=== PATIENT | female | born 1995 | race Caucasian/White ===

== ENCOUNTER 2017-11-17 15:19 | Emergency (ER) | payer OTHER ==
[~2017-11-17] VITALS: Ht 170.2 cm; Wt 112.9 kg
--- NOTE | 2017-11-17 16:32 | PHYS DOC ---
Past History Past Medical History: Anxiety, Bipolar, Depression Past Surgical History: No Surgical History Alcohol Use: Occasionally Drug Use: None Adult General Chief Complaint Chief Complaint: SEXUALLY TRANSMITTED DISEASE HPI HPI 22-year-old female presents with her spouse was concern for STD. The patient has noticed that she has had a change in her discharge for the last couple of days. She also reported a burning sensation in her vagina. The patient has had chlamydia in the past. She admits to 4 sexual partners the last 1 year. She denies fever or chills. She has been once, but miscarried. Review of Systems Review of Systems Constitutional: Denies fever or chills [] Eyes: Denies change in visual acuity, redness, or eye pain [] HENT: Denies nasal congestion or sore throat [] Respiratory: Denies cough or shortness of breath [] Cardiovascular: No additional information not addressed in HPI [] GI: Denies abdominal pain, nausea, vomiting, bloody stools or diarrhea [] : Change in vaginal discharge[] Musculoskeletal: Denies back pain or joint pain [] Integument: Denies rash or skin lesions [] Neurologic: Denies headache, focal weakness or sensory changes [] Endocrine: Denies polyuria or polydipsia [] All other systems were reviewed and found to be within normal limits, except as documented in this note. Allergies Allergies Allergies Coded Allergies Type Severity Reaction Last Updated Verified lisdexamfetamine Allergy Mild 11/17/17 Yes Physical Exam Physical Exam Constitutional: Well developed, well nourished, no acute distress, non-toxic appearance. [] HENT: Normocephalic, atraumatic, bilateral external ears normal, oropharynx moist, no oral exudates, nose normal. [] Eyes: PERRLA, EOMI, conjunctiva normal, no discharge. [] Neck: Normal range of motion, no tenderness, supple, no stridor. [] Cardiovascular:Heart rate regular rhythm, no murmur [] Lungs & Thorax: Bilateral breath sounds clear to auscultation [] Abdomen: Bowel sounds normal, soft, no tenderness, no masses, no pulsatile masses. [] Skin: Warm, dry, no erythema, no rash. [] Back: No tenderness, no CVA tenderness. [] Extremities: No tenderness, no cyanosis, no clubbing, ROM intact, no edema. [] Neurologic: Alert and oriented X 3, normal motor function, normal sensory function, no focal deficits noted. [] Psychologic: Affect normal, judgement normal, mood normal. : shaved pubic hair, normal external exam, thick white to vieyra discharge, erythematous cervix. [] Current Patient Data Vital Signs Vital Signs Date Time Temp Pulse Resp B/P (MAP) Pulse Ox O2 Delivery O2 Flow Rate FiO2 11/17/17 15:49 98.3 112 18 98 Room Air EKG EKG [] Radiology/Procedures Radiology/Procedures [] Course & Med Decision Making Course & Med Decision Making Pertinent Labs and Imaging studies reviewed. (See chart for details) Patient is been treated for chlamydia and gonorrhea with ceftriaxone and azithromycin. Her wet prep was negative. She is stable for discharge at this time. [] Dragon Disclaimer Dragon Disclaimer This electronic medical record was generated, in whole or in part, using a voice recognition dictation system. Departure Departure: Referrals: YULISA HOWARD DO, [facility] (PCP) BRENTON LUNA DO Nov 17, 2017 16:32
[2017-11-17 16:42] VITALS: BP 135/85
[2017-11-17] MEDS ORDERED: cefTRIAXone IM 250 MG VIAL IM ONE (17:00)
[2017-11-17] MEDS ORDERED: AZITHROMYCIN 250 MG TABLET. PO ONE (17:00)
[2017-11-18 15:09] LABS: CHLAMYDIA PROBE Negative (Negative)
== END 2017-11-17 17:20 | disposition home or self-care (01) ==
LOC: ER 15:19
DX: A54.03 Gonococcal cervicitis, unspecified (principal); A56.09 Other chlamydial infection of lower genitourinary tract; Z88.8 Allergy status to other drugs, medicaments and biological substances
CPT/HCPCS: 36415; 87491; 87591; 96372; 99284; J0456; J0696; Q0111

== ENCOUNTER 2018-02-12 15:45 | Emergency (ER) | payer OTHER ==
[~2018-02-12] VITALS: Ht 170.2 cm; Wt 112.9 kg
[2018-02-12] MEDS ORDERED: MORPHINE SULFATE 10 MG/ML SYRINGE. IM ONE (16:15)
[2018-02-12] MEDS ORDERED: ONDANSETRON ODT 4 MG TAB.RAPDIS PO ONE (16:15)
[2018-02-12] MEDS ORDERED: DOXY100T9 PO (16:47)
[2018-02-12] MEDS ORDERED: HYDR-3165 PO ×2 (16:47→16:49)
--- NOTE | 2018-02-12 16:55 | ED.ADGEN ---
Past History Past Medical History: Anxiety, Bipolar, Depression Past Surgical History: No Surgical History Alcohol Use: Occasionally Drug Use: None Adult General Chief Complaint Chief Complaint Genital lesion HPI HPI Patient is a 22-year-old female presents with dental lesion to right anterior inner labia. Symptom onset was 3 days ago. Patient reports tenderness swelling to this region. history of ingrown hairs and chlamydia which was untreated. Patient is currently in a female female relationship. Last menstrual period in the past 3 weeks. Denies possibility of [] Review of Systems Review of Systems Review symptoms as per history of present illness. All other systems were reviewed and found to be within normal limits, except as documented in this note. Current Medications Current Medications Current Medications Medications (Trade) Dose Ordered Sig/Ej Start Time Stop Time Status Last Admin Dose Admin Morphine Sulfate (Morphine 10mg Syringe) 10 mg 1X ONCE 02/12/18 16:15 02/12/18 16:16 DC 02/12/18 16:22 10 MG Ondansetron HCl (Zofran Odt) 4 mg 1X ONCE 02/12/18 16:15 02/12/18 16:16 DC 02/12/18 16:22 4 MG Allergies Allergies Allergies Coded Allergies Type Severity Reaction Last Updated Verified lisdexamfetamine Allergy Mild 11/17/17 Yes Physical Exam Physical Exam Constitutional: Well developed, well nourished, no acute distress, non-toxic appearance. [] HENT: Normocephalic, atraumatic, bilateral external ears normal, oropharynx moist, no oral exudates, nose normal. [] : Minimal swelling, erythema of right anterior inner labia, no fluctuance, drainage or pointing. No mucosal lesions. Minimal tenderness. [] Psychologic: Affect normal, judgement normal, mood normal. [] EKG EKG [] Radiology/Procedures Radiology/Procedures [] Course & Med Decision Making Course & Med Decision Making Pertinent Labs and Imaging studies reviewed. (See chart for details) [Recommend antibiotics, supportive care for treatment of genital lesion with PCP /R[facility] OPERATOR follow-up. Return precautions reviewed. ] Final Impression Final Impression [1. Genital lesion] Dragon Disclaimer Dragon Disclaimer This electronic medical record was generated, in whole or in part, using a voice recognition dictation system. BRENTON SOTO DO Feb 12, 2018 16:55
== END 2018-02-12 16:54 | disposition home or self-care (01) ==
LOC: ER 15:45
DX: N90.89 Other specified noninflammatory disorders of vulva and perineum (principal); Z88.8 Allergy status to other drugs, medicaments and biological substances
CPT/HCPCS: 96372; 99283; J2270; Q0162

== ENCOUNTER 2018-04-06 13:11 | Emergency (ER) | payer OTHER ==
[~2018-04-06] VITALS: Ht 170.2 cm; Wt 108.7 kg
[~2018-04-06 13:11] MED LIST: DOXY100T9 PO; HYDR-3165 PO
[2018-04-06] MEDS ORDERED: IV NORMAL SALINE 1,000ML 1,000 ML IV SCH (14:45)
--- NOTE | 2018-04-06 14:55 | PHYS DOC ---
Past History Past Medical History: Anxiety, Bipolar, Depression, Other Past Surgical History: No Surgical History Alcohol Use: Occasionally Drug Use: None Adult General Chief Complaint Chief Complaint: CHEST PAIN HPI HPI Patient is a 22-year-old female presents complaining of mid chest pain that started this morning, lasts a short amount of time but comes and goes. Not specifically associated with exertion, coughing, or body position, or movement. There has been some nausea, no vomiting. Patient reports the discomfort is burning in nature. Moderate in intensity. No radiation of the discomfort. No diaphoresis. No history of similar symptoms previously. Patient denies any PE risk factors.[] Review of Systems Review of Systems Constitutional: Denies fever or chills [] Eyes: Denies change in visual acuity, redness, or eye pain [] HENT: Denies nasal congestion or sore throat [] Respiratory: Denies cough or shortness of breath [] Cardiovascular: No additional information not addressed in HPI [] GI: Denies abdominal pain, nausea, vomiting, bloody stools or diarrhea [] : Denies dysuria or hematuria [] Musculoskeletal: Denies back pain or joint pain [] Integument: Denies rash or skin lesions [] Neurologic: Denies headache, focal weakness or sensory changes [] Endocrine: Denies polyuria or polydipsia [] All other systems were reviewed and found to be within normal limits, except as documented in this note. Current Medications Current Medications Current Medications Medications (Trade) Dose Ordered Sig/Ej Start Time Stop Time Status Last Admin Dose Admin Sodium Chloride 1,000 ml @ 100 mls/hr Q10H 04/06/18 14:45 04/07/18 00:44 UNV Allergies Allergies Allergies Coded Allergies Type Severity Reaction Last Updated Verified lisdexamfetamine Allergy Mild 11/17/17 Yes Physical Exam Physical Exam Constitutional: Well developed, well nourished, no acute distress, non-toxic appearance. [] HENT: Normocephalic, atraumatic, bilateral external ears normal, oropharynx moist, no oral exudates, nose normal. [] Eyes: PERRLA, EOMI, conjunctiva normal, no discharge. [] Neck: Normal range of motion, no tenderness, supple, no stridor. [] Cardiovascular:Heart rate regular rhythm, no murmur [] Lungs & Thorax: Bilateral breath sounds clear to auscultation [] Abdomen: Bowel sounds normal, soft, no tenderness, no masses, no pulsatile masses. [] Skin: Warm, dry, no erythema, no rash. [] Back: No tenderness, no CVA tenderness. [] Extremities: No tenderness, no cyanosis, no clubbing, ROM intact, no edema. [] Neurologic: Alert and oriented X 3, normal motor function, normal sensory function, no focal deficits noted. [] Psychologic: Affect normal, judgement normal, mood normal. [] Current Patient Data Vital Signs Vital Signs Date Time Temp Pulse Resp B/P (MAP) Pulse Ox O2 Delivery O2 Flow Rate FiO2 04/06/18 13:28 97.8 119 18 97 Room Air EKG EKG EKG shows a sinus tachycardia at 112 bpm, no ST elevation, normal axis, QTC of 425 ms, no old EKG available for comparison. EKG interpreted by me at 1330[] Radiology/Procedures Radiology/Procedures EXAM: CHEST 1 VIEW History: Chest pain COMPARISON: None available. TECHNIQUE: Single portable radiograph of the chest FINDINGS: The cardiac silhouette is unremarkable. The lungs are clear bilaterally. The costophrenic sulci are clear and well demarcated. IMPRESSION: No radiographic evidence of an acute cardiopulmonary process. Electronically signed by: Jose Daniel Meehan MD (04/06/2018 3:07 PM) [id number] [] Course & Med Decision Making Course & Med Decision Making Pertinent Labs and Imaging studies reviewed. (See chart for details) ED course: Patient arrived, was placed in bed, and tolerated exam well. She was given GI cocktail which entirely resolved her symptoms. Discussed findings and plan with patient who voiced understanding. All questions were answered. Patient was discharged in improved condition. Medical decision making: There is no evidence of pneumonia, pneumothorax, pulmonary embolism, acute coronary syndrome, or other life-threatening condition. There is also menstrual finding of a urinary tract infection.[] Dragon Disclaimer Dragon Disclaimer This electronic medical record was generated, in whole or in part, using a voice recognition dictation system. Departure Departure: Impression: Primary Impression: Chest pain Additional Impressions: GERD (gastroesophageal reflux disease) Urinary tract infection Trichomonas infection Disposition: 01 HOME, SELF-CARE Condition: IMPROVED Referrals: YULISA HOWARD DO, [facility] (PCP) Follow-up in 2 days Patient Instructions: Chest Pain (Nonspecific), Diet for Gastroesophageal Reflux Disease, Adult, Gastroesophageal Reflux Disease, Adult, Trichomoniasis, Urinary Tract Infection Additional Instructions: Drink plenty of fluids. Follow-up with your regular doctor in 2 days. Return to the ER if worsening chest discomfort, fever of more than 101, or any other concerns. Scripts Cephalexin (KEFLEX) 500 Mg Capsule 500 MG PO TID for UTI, #30 CAP Prov: FABIEN STALLINGS DO 04/06/18 Tramadol Hcl (TRAMADOL HCL) 50 Mg Tablet 50 MG PO PRN Q6HRS PRN for PAIN, #20 TAB Prov: FABIEN STALLINGS DO 04/06/18 Metronidazole (FLAGYL) 500 Mg Tablet 2000 MG PO 1X for TRICHAMONIASIS for 1 Day, #4 TAB Prov: FABIEN STALLINGS DO 04/06/18 Lansoprazole (PREVACID) 15 Mg Capsule.dr 1 CAP PO DAILY for GERD, #30 CAP Prov: FABIEN STALLINGS DO 04/06/18 Problem Qualifiers Primary Impression: Chest pain Chest pain type: unspecified Qualified Codes: R07.9 - Chest pain, unspecified Additional Impressions: GERD (gastroesophageal reflux disease) Esophagitis presence: esophagitis presence not specified Qualified Codes: K21.9 - Gastro-esophageal reflux disease without esophagitis Urinary tract infection Urinary tract infection type: site unspecified Hematuria presence: without hematuria Qualified Codes: N39.0 - Urinary tract infection, site not specified FABIEN STALLINGS DO Apr 06, 2018 14:55
[2018-04-06 14:56] LABS: BASO % 0 % (0-3); EOS % 1 % (0-3); HEMATOCRIT 37.6 % (36.0-47.0); LYMPH # 2.7 x10^3/uL (1.0-4.8); LYMPH % 34 % (24-48); MEAN CORPUSCULAR HEMOGLOBIN 28 pg (25-35); MEAN CORPUSCULAR HGB CONC 35 g/dL (31-37); MEAN CORPUSCULAR VOLUME 80 fL (79-100); MONO # 0.4 x10^3/uL (0.0-1.1); MONO % 6 % (0-9); NEUT # 4.8 x10^3uL (1.8-7.7); NEUT % 60 % (31-73); PLATELET COUNT 281 x10^3/uL (140-400); RED BLOOD COUNT 4.69 x10^6/uL (3.50-5.40); RED CELL DISTRIBUTION WIDTH 13.6 % (11.5-14.5); WHITE BLOOD COUNT 7.9 x10^3/uL (4.0-11.0)
[2018-04-06] MEDS ORDERED: LIDO:MAALOX 1:1 20 ML SINGLE DOSE. PO ONE (15:00)
[2018-04-06 15:09] LABS: BARBITURATES NEG (NEG); BENZODIAZEPINES NEG (NEG); CANNABINOIDS NEG (NEG); COCAINE NEG (NEG); METHADONE NEG (NEG); OPIATES NEG (NEG); PHENCYCLIDINE NEG (NEG)
[2018-04-06 15:10] LABS: AMPHETAMINE/METHAMPHETAMINE POS (NEG)
--- NOTE | 2018-04-06 15:10 | RAD ---
EXAM: CHEST 1 VIEW History: Chest pain COMPARISON: None available. TECHNIQUE: Single portable radiograph of the chest FINDINGS: The cardiac silhouette is unremarkable. The lungs are clear bilaterally. The costophrenic sulci are clear and well demarcated. IMPRESSION: No radiographic evidence of an acute cardiopulmonary process. Electronically signed by: Jose Daniel Meehan MD (04/06/2018 3:07 PM) [place] [id number]
[2018-04-06 15:11] LABS: ALBUMIN 3.9 g/dL (3.4-5.0); CALCIUM 9.1 mg/dL (8.5-10.1); CREATININE 0.7 mg/dL (0.6-1.0); GFR 105.6; MAGNESIUM 1.9 mg/dL (1.8-2.4); POTASSIUM 3.5 mmol/L (3.5-5.1); TOTAL BILIRUBIN 0.5 mg/dL (0.2-1.0); TOTAL PROTEIN 7.8 g/dL (6.4-8.2)
[2018-04-06 15:16] LABS: COLOR,URINE YELLOW
[2018-04-06 15:17] LABS: BACTERIA,URINE MOD /HPF (0-FEW); BILIRUBIN,URINE NEG (NEG); CLARITY,URINE HAZY; GLUCOSE,URINE NEG (NEG); HYALINE CASTS, URINE OCC /HPF; NITRITE,URINE NEG (NEG); RBC,URINE 0 /HPF (0-2); SQUAMOUS EPITHELIAL CELL,UR MOD /LPF; TRICHOMONAS,URINE PRESENT; UROBILINOGEN,URINE 0.2 mg/dL (0.2 mg/dL)
[2018-04-06 15:43] VITALS: BP 134/87
[2018-04-06] MEDS ORDERED: TRAM50TA PO (15:44)
[2018-04-06] MEDS ORDERED: CEPH-264 PO (15:44)
[2018-04-06] MEDS ORDERED: METR500T PO (15:44)
[2018-04-06] MEDS ORDERED: LANS15CA78 PO (15:44)
--- NOTE | 2018-04-07 22:54 | EKG ---
[address] [address] Test Date: 2018-04-06 Test Time: 13:28:36 Pat Name: ALEXUS MCNEIL Department: Room: Gender: F Booth Cashier: NITESH : 1995 Requested By: FABIEN STALLINGS Order Number: [id number] Reading MD: Fer Diaz MD Measurements Intervals [place] Rate: 112 P: 8 HI: 114 QRS: 38 QRSD: 96 T: 34 QT: 310 QTc: 425 Interpretive Statements SINUS TACHYCARDIA NON-SPECIFIC ST/T CHANGES Electronically Signed On 04-17-2018 12:14:13 [employer] by Fer Diaz MD
== END 2018-04-06 15:56 | disposition home or self-care (01) ==
LOC: ER 13:11
DX: R07.89 Other chest pain (principal); K21.9 Gastro-esophageal reflux disease without esophagitis; N39.0 Urinary tract infection, site not specified; A59.9 Trichomoniasis, unspecified; F41.9 Anxiety disorder, unspecified; F31.9 Bipolar disorder, unspecified; Z88.8 Allergy status to other drugs, medicaments and biological substances
CPT/HCPCS: 36415; 71045; 80053; 80307; 81001; 83690; 83735; 83880; 84484; 85025; 85379; 85610; 87086; 93005; 99284-25; J7030

== ENCOUNTER 2018-06-08 14:45 | Emergency (ER) | payer OTHER ==
[~2018-06-08] VITALS: Ht 170.2 cm; Wt 107.2 kg
[~2018-06-08 14:45] MED LIST changes: +CEPH-264 PO; +LANS15CA78 PO; +METR500T PO; +TRAM50TA PO
[2018-06-08] MEDS ORDERED: IV NORMAL SALINE 1,000ML 1,000 ML IV SCH (14:58)
[2018-06-08] MEDS ORDERED: KETOROLAC 30 MG/ML VIAL. IV ONE (15:00)
--- NOTE | 2018-06-08 15:05 | PHYS DOC ---
Past History Past Medical History: Anxiety, Bipolar, Depression, Other Past Surgical History: No Surgical History Alcohol Use: Occasionally Drug Use: Marijuana Adult General Chief Complaint Chief Complaint: ABDOMINAL PAIN HPI HPI Patient is a 22-year-old female presents with right lower quadrant pain and its been waxing and waning for the past week. There are no triggering or pale eating factors. Patient has taken no pain medicine. No nausea or vomiting. No diarrhea. No dysuria. No migration of the pain. No hematuria. Pain is mild to moderate in intensity.[] Review of Systems Review of Systems Constitutional: Denies fever or chills [] Eyes: Denies change in visual acuity, redness, or eye pain [] HENT: Denies nasal congestion or sore throat [] Respiratory: Denies cough or shortness of breath [] Cardiovascular: No chest pain or palpitations[] GI: See history of present illness[] : Denies dysuria or hematuria [] Musculoskeletal: Denies back pain or joint pain [] Integument: Denies rash or skin lesions [] Neurologic: Denies focal weakness or sensory changes, reports a headache, not worst headache of life, like her usual headaches [] Endocrine: Denies polyuria or polydipsia [] All other systems were reviewed and found to be within normal limits, except as documented in this note. Allergies Allergies Allergies Coded Allergies Type Severity Reaction Last Updated Verified lisdexamfetamine Allergy Mild 11/17/17 Yes Physical Exam Physical Exam Constitutional: Well developed, well nourished, no acute distress, non-toxic appearance. [] HENT: Normocephalic, atraumatic, bilateral external ears normal, oropharynx moist, no oral exudates, nose normal. [] Eyes: PERRLA, EOMI, conjunctiva normal, no discharge. [] Neck: Normal range of motion, no tenderness, supple, no stridor. [] Cardiovascular:Heart rate regular rhythm, no murmur [] Lungs & Thorax: Bilateral breath sounds clear to auscultation [] Abdomen: Bowel sounds normal, soft, right lower quadrant tenderness with rebound tenderness, no guarding, no rigidity, patient is able to sit up and lay back without any difficulty, no bruising, no masses, no pulsatile masses. Pelvic exam performed with plate worker helper: [] Skin: Warm, dry, no erythema, no rash. [] Back: No tenderness, no CVA tenderness. [] Extremities: No tenderness, no cyanosis, no clubbing, ROM intact, no edema. [] Neurologic: Alert and oriented X 3, normal motor function, normal sensory function, no focal deficits noted. [] Psychologic: Affect normal, judgement normal, mood normal. [] Current Patient Data Vital Signs Vital Signs Date Time Temp Pulse Resp B/P (MAP) Pulse Ox O2 Delivery O2 Flow Rate FiO2 06/08/18 14:57 97.9 104 18 98 Room Air EKG EKG [] Radiology/Procedures Radiology/Procedures PROCEDURE: CT ABDOMEN PELVIS WO CONTRAST CT ABDOMEN PELVIS WO CONTRAST Indication: RLQ ABDOMINAL PAIN X 1 WEEK Exposure: One or more of the following individualized dose reduction techniques were utilized for this examination: 1. Automated exposure control 2. Adjustment of the mA and/or kV according to patient size 3. Use of iterative reconstruction technique. Comparison: None are available. Technique: No intravenous contrast given. No oral contrast per request. Findings: Evaluation of solid viscera, bowel and vasculature is compromised by the noncontrast technique. Lung bases are clear. Mildly enlarged at about 20 cm cephalocaudal. Spleen is not enlarged. Pancreas is unremarkable. No adrenal mass. Nonobstructive 6 mm calculus lower pole right kidney. No hydronephrosis. No evidence of ureteric dilatation or calculus. No calcified gallstone. Aorta nonaneurysmal. Small aortocaval lymph nodes, which are likely reactive. These measure up to 8 mm in short axis. No significant small bowel distention. No acute colitis. The appendix is visualized and is normal. Small right lower quadrant lymph nodes are identified, largest measures 11 mm in short axis. No ascites or pneumoperitoneum. No evidence of pelvic mass. Urinary bladder is not adequately distended for evaluation. Vertebral body height and alignment are intact. IMPRESSION: 1. No evidence of acute appendicitis. 2. Mildly enlarged right lower quadrant lymph nodes, may be inflammatory or reactive. This is compatible with mesenteric adenitis. There are also prominent aortocaval lymph nodes, likely reactive. Consider follow-up imaging as indicated to document resolution. 3. Nonobstructive 6 mm calculus lower pole right kidney.[] Course & Med Decision Making Course & Med Decision Making Pertinent Labs and Imaging studies reviewed. (See chart for details) ED course: Patient arrived, was placed in bed, and tolerated exam well. She was transported to and from ID with any complications. After return of laboratory findings, IV and a box were started for what appears to be a urinary tract infection. After the return of the lab and imaging findings, these were discussed with the patient and her partner who voiced understanding. All questions were answered. Patient was discharged in improved condition. Medical decision making: Patient appears to have urinary tract infection, no evidence of pyelonephritis nor systemic infection. No evidence of appendicitis. No evidence of an ectopic nor tubo-ovarian abscess. No evidence of pelvic inflammatory disease.[] Dragon Disclaimer Dragon Disclaimer This electronic medical record was generated, in whole or in part, using a voice recognition dictation system. Departure Departure: Impression: Primary Impression: Urinary tract infection Additional Impression: Mesenteric adenitis Disposition: HOME, SELF-CARE Condition: IMPROVED Referrals: YULISA HOWARD DO, [facility] (PCP) Follow-up in 2 days Patient Instructions: Mesenteric Adenitis, Urinary Tract Infection Additional Instructions: Drink plenty of fluids. Follow-up with your regular doctor in 2 days. Take medication as prescribed. Do not use any drugs or medications that are not prescribed for you, they may kill you. Return to the ER if worsening discomfort or any other concerns. Scripts Meloxicam (MELOXICAM) 7.5 Mg Tablet 7.5 MG PO DAILY for PAIN, #20 TAB Prov: FABIEN STALLINGS DO 06/08/18 Doxycycline Hyclate (DOXYCYCLINE HYCLATE) 100 Mg Tablet 1 TAB PO BID for urinary tract infection, #20 TAB Prov: FABIEN STALLINGS DO 06/08/18 Problem Qualifiers Primary Impression: Urinary tract infection Urinary tract infection type: site unspecified Hematuria presence: without hematuria Qualified Codes: N39.0 - Urinary tract infection, site not specified FABIEN STALLINGS DO Jun 08, 2018 15:04
[2018-06-08 15:27] LABS: BASO % 0 % (0-3); EOS % 1 % (0-3); HEMATOCRIT 40.9 % (36.0-47.0); HEMOGLOBIN 14.2 g/dL (12.0-15.5); LYMPH # 2.1 x10^3/uL (1.0-4.8); LYMPH % 32 % (24-48); MEAN CORPUSCULAR HEMOGLOBIN 28 pg (25-35); MEAN CORPUSCULAR HGB CONC 35 g/dL (31-37); MEAN CORPUSCULAR VOLUME 79 fL (79-100); MONO # 0.5 x10^3/uL (0.0-1.1); MONO % 7 % (0-9); NEUT % 60 % (31-73); PLATELET COUNT 302 x10^3/uL (140-400); RED BLOOD COUNT 5.15 x10^6/uL (3.50-5.40); RED CELL DISTRIBUTION WIDTH 13.6 % (11.5-14.5); WHITE BLOOD COUNT 6.6 x10^3/uL (4.0-11.0)
[2018-06-08] MEDS ORDERED: PROCHLORPERAZINE 10 MG/2 ML VIAL. IV ONE (15:30)
[2018-06-08 15:39] LABS: BARBITURATES NEG (NEG); BENZODIAZEPINES NEG (NEG); CANNABINOIDS POS (NEG); COCAINE NEG (NEG); METHADONE NEG (NEG); OPIATES NEG (NEG); PHENCYCLIDINE NEG (NEG)
[2018-06-08 15:40] LABS: AMPHETAMINE/METHAMPHETAMINE POS (NEG)
[2018-06-08 15:42] LABS: BILIRUBIN,URINE NEG (NEG); CLARITY,URINE CLEAR; COLOR,URINE AMBER; GLUCOSE,URINE NEG (NEG)
[2018-06-08 15:43] LABS: BACTERIA,URINE FEW /HPF (0-FEW); NITRITE,URINE NEG (NEG); SQUAMOUS EPITHELIAL CELL,UR MOD /LPF; UROBILINOGEN,URINE 0.2 mg/dL (0.2 mg/dL)
[2018-06-08 15:52] LABS: ALBUMIN 4.1 g/dL (3.4-5.0); ALBUMIN/GLOBULIN RATIO 0.9 (1.0-1.7); CALCIUM 9.4 mg/dL (8.5-10.1); CREATININE 0.8 mg/dL (0.6-1.0); GFR 90.5; POTASSIUM 4.2 mmol/L (3.5-5.1); TOTAL PROTEIN 8.5 g/dL (6.4-8.2)
[2018-06-08] MEDS ORDERED: cefTRIAXone SODIUM 1 GM VIAL ONE (15:56)
[2018-06-08] MEDS ORDERED: IV NORMAL SALINE 50ML 50 ML ONE (15:56)
--- NOTE | 2018-06-08 16:11 | RAD ---
CT ABDOMEN PELVIS WO CONTRAST Indication: RLQ ABDOMINAL PAIN X 1 WEEK Exposure: One or more of the following individualized dose reduction techniques were utilized for this examination: 1. Automated exposure control 2. Adjustment of the mA and/or kV according to patient size 3. Use of iterative reconstruction technique. Comparison: None are available. Technique: No intravenous contrast given. No oral contrast per request. Findings: Evaluation of solid viscera, bowel and vasculature is compromised by the noncontrast technique. Lung bases are clear. Mildly enlarged at about 20 cm cephalocaudal. Spleen is not enlarged. Pancreas is unremarkable. No adrenal mass. Nonobstructive 6 mm calculus lower pole right kidney. No hydronephrosis. No evidence of ureteric dilatation or calculus. No calcified gallstone. Aorta nonaneurysmal. Small aortocaval lymph nodes, which are likely reactive. These measure up to 8 mm in short axis. No significant small bowel distention. No acute colitis. The appendix is visualized and is normal. Small right lower quadrant lymph nodes are identified, largest measures 11 mm in short axis. No ascites or pneumoperitoneum. No evidence of pelvic mass. Urinary bladder is not adequately distended for evaluation. Vertebral body height and alignment are intact. IMPRESSION: 1. No evidence of acute appendicitis. 2. Mildly enlarged right lower quadrant lymph nodes, may be inflammatory or reactive. This is compatible with mesenteric adenitis. There are also prominent aortocaval lymph nodes, likely reactive. Consider follow-up imaging as indicated to document resolution. 3. Nonobstructive 6 mm calculus lower pole right kidney. Electronically signed by: Kailash Taylor MD (06/08/2018 4:08 PM) [id number]
[2018-06-08 17:11] VITALS: BP 145/86
[2018-06-08] MEDS ORDERED: MELO7.5T29 PO (17:13)
[2018-06-08] MEDS ORDERED: DOXY100T PO (17:13)
== END 2018-06-08 17:21 | disposition home or self-care (01) ==
LOC: ER 14:45
DX: N39.0 Urinary tract infection, site not specified (principal); I88.0 Nonspecific mesenteric lymphadenitis; R51 Headache; N20.0 Calculus of kidney; F41.9 Anxiety disorder, unspecified; F31.9 Bipolar disorder, unspecified; Z88.8 Allergy status to other drugs, medicaments and biological substances
CPT/HCPCS: 36415; 74176; 80053; 80307; 81001; 81025; 83690; 85025; 87086; 87491; 87591; 96365; 96375; 99285; J0696; J0780; J1885; Q0111; J7030

== ENCOUNTER 2019-05-27 22:52 | Emergency (ER) | payer OTHER ==
[~2019-05-27] VITALS: Ht 170.2 cm; Wt 107.2 kg
[~2019-05-27 22:52] MED LIST changes: +DOXY-96 PO; +DOXY100T PO; -DOXY100T9 PO; +MELO7.5T29 PO
[2019-05-27 23:00] VITALS: BP 136/92
--- NOTE | 2019-05-27 23:08 | PHYS DOC ---
Past History Past Medical History: Anxiety, Bipolar, Depression, Other Past Surgical History: No Surgical History Alcohol Use: Occasionally Drug Use: Marijuana General Adult HPI: HPI: .. " I am having bad pain when I urinate.... My doctor started me on a pill for urinary tract infection but then told me to stop... But my symptoms have not gotten better.... " Patient is a 23 year old female who presents with above hx and complaints marked dysuria. Patient denies any vaginal discharge. Patient has had 7 lifetime sexual partners. Has history of one episode of chlamydia which was treated. Patient denies any recent travel outside the [facility]. Patient denies any trauma to the vaginal or urinary tract. Patient has had previous urinary tract infections. Patient no longer does bubble baths but only showers. Patient denies any current risk for STD. Patient does have a past medical history of anxiety, bipolar disorder and depression. Patient has no urinary tract symptoms,or vaginal discharge. Review of Systems: Review of Systems: Constitutional: Denies fever or chills Eyes: Denies change in visual acuity HENT: Denies nasal congestion or sore throat Respiratory: Denies cough or shortness of breath Cardiovascular: Denies chest pain or edema GI: Denies abdominal pain, nausea, vomiting, bloody stools or diarrhea : Denies dysuria Musculoskeletal: Denies back pain or joint pain Integument: Denies rash Neurologic: Denies headache, focal weakness or sensory changes Endocrine: Denies polyuria or polydipsia Lymphatic: Denies swollen glands Psychiatric: Denies depression or anxiety Heart Score: Risk Factors: Risk Factors: DM, Current or recent (<one month) smoker, HTN, HLP, family history of CAD, obesity. Risk Scores: Score 0 - 3: 2.5% MACE over next 6 weeks - Discharge Home Score 4 - 6: 20.3% MACE over next 6 weeks - Admit for Clinical Observation Score 7 - 10: 72.7% MACE over next 6 weeks - Early Invasive Strategies Family History: Family History: Noncontributory Current Medications: Current Meds: See nursing for home meds Allergies: Allergies: Allergies Coded Allergies Type Severity Reaction Last Updated Verified lisdexamfetamine Allergy Mild 11/17/17 Yes Physical Exam: PE: Constitutional: Moderate acute distress, non-toxic appearance. [] HENT: Normocephalic, atraumatic, bilateral external ears normal, oropharynx moist, no oral exudates, nose normal. [] Eyes: PERRLA, EOMI, conjunctiva normal, no discharge. [] Neck: Normal range of motion, no tenderness, supple, no stridor. [] Cardiovascular:Heart rate regular rhythm, no murmur [] Lungs & Thorax: Bilateral breath sounds equal at apex with few scattered wheezes on auscultation [] Abdomen: Bowel sounds normal, soft, no tenderness, no masses, no pulsatile masses. Mild suprapubic tenderness Skin: Warm, dry, no erythema, no rash. [] Back: No tenderness, no CVA tenderness. [] Extremities: No tenderness, no cyanosis, no clubbing, ROM intact, no edema. [] Neurologic: Alert and oriented X 3, normal motor function, normal sensory function, no focal deficits noted. [] Psychologic: Affect anxious, judgement normal, mood normal. [] EKG: EKG: [] Radiology/Procedures: Radiology/Procedures: [] Course & Med Decision Making: Course & Med Decision Making Pertinent Labs and Imaging studies reviewed. (See chart for details) Push fluids and vit. C drinks. Push fluids. Tylenol and Ibuprofen for pain. Take Levaquin 500 daily for 5 days. After completing Levaquin take Diflucan 100 mg for 3 days. Follow-up urine cultures. Return if any concerns. Follow- up with Jannie. Impression: 1. Dysuria 2. Tobacco and marijuana use (current drug screen positive for marijuana &amphetamines) [] Dragon Disclaimer: Dragmaci Disclaimer: This electronic medical record was generated, in whole or in part, using a voice recognition dictation system. Departure Departure: Disposition: 01 HOME/RESIDENCE PRIOR TO ADM Condition: STABLE Referrals: PCP,NO (PCP) Scripts Fluconazole (DIFLUCAN) 100 Mg Tablet 100 MG PO DAILY for post antibiotic tx for 3 Days, #3 TAB Prov: MERLYN SCHULTZ MD 05/28/19 Levofloxacin (LEVAQUIN) 500 Mg Tablet 500 MG PO DAILY for uti for 5 Days, #5 TAB Prov: MERLYN SCHULTZ MD 05/28/19 Manny Disclaimer This chart was dictated in whole or in part using Voice Recognition software in a busy, high-work load, and often noisy Emergency Department environment. It may contain unintended and wholly unrecognized errors or omissions. Dragon Disclaimer This chart was dictated in whole or in part using Voice Recognition software in a busy, high-work load, and often noisy Emergency Department environment. It may contain unintended and wholly unrecognized errors or omissions. MERLYN SCHULTZ MD May 27, 2019 23:08
[2019-05-27 23:57] LABS: AMPHETAMINE/METHAMPHETAMINE POS (NEG); BARBITURATES NEG (NEG); BENZODIAZEPINES NEG (NEG); CANNABINOIDS POS (NEG); COCAINE NEG (NEG); METHADONE NEG (NEG); OPIATES NEG (NEG); PHENCYCLIDINE NEG (NEG)
[2019-05-28 00:01] LABS: BACTERIA,URINE FEW /HPF (0-FEW); CLARITY,URINE HAZY; COLOR,URINE ORANGE; RBC,URINE OCC /HPF (0-2); SQUAMOUS EPITHELIAL CELL,UR FEW /LPF
[2019-05-28 00:11] LABS: U PREG PATIENT NEGATIVE (NEG)
[2019-05-28] MEDS ORDERED: FLUC100T7 PO (00:19)
[2019-05-28] MEDS ORDERED: LEVO500T59 PO (00:19)
[2019-05-28] MEDS ORDERED: levoFLOXacin 500 MG TABLET PO ONE (00:30)
== END 2019-05-28 00:30 | disposition home or self-care (01) ==
LOC: ER 22:52
DX: R30.0 Dysuria (principal); F12.10 Cannabis abuse, uncomplicated; F15.10 Other stimulant abuse, uncomplicated; Z72.0 Tobacco use; Z88.8 Allergy status to other drugs, medicaments and biological substances
CPT/HCPCS: 36415; 80307; 81001; 81025; 99283

== ENCOUNTER 2020-06-20 12:52 | Emergency (ER) | payer OTHER ==
[~2020-06-20] VITALS: Ht 165.1 cm; Wt 98.0 kg
[~2020-06-20 12:52] MED LIST changes: +FLUC100T7 PO; +LEVO500T59 PO
[2020-06-20] MEDS ORDERED: KETOROLAC 30 MG/ML VIAL. IVP ONE (13:00)
[2020-06-20] MEDS ORDERED: METOCLOPRAMIDE HCL 10 MG/2 ML VIAL. IVP ONE (13:00)
[2020-06-20] MEDS ORDERED: IV NORMAL SALINE 1,000ML 1,000 ML IV ONE (13:00)
[2020-06-20] MEDS ORDERED: diphenhydrAMINE 50 MG/ML VIAL IVP ONE (13:00)
--- NOTE | 2020-06-20 13:11 | PHYS DOC ---
Past History Past Medical History: Anxiety, Bipolar, Depression, UTI, Other Past Surgical History: No Surgical History Alcohol Use: Occasionally Drug Use: Marijuana General Adult EDM: Chief Complaint: FEVER HPI: HPI: 24-year-old female presents with 5-day history of body aches, intermittent fever, diarrhea, and occasional vomiting. The patient thought she might have COVID-19 given her fever so she has been tested twice in the last 48 hours. Both tests were negative. Yesterday she had a fever of 104 but it has improved today. She still has a headache and feels generally worn out. The diarrhea has improved but she still has decreased appetite. She denies dysuria or urinary frequency. Review of Systems: Review of Systems: Constitutional: Fever, body aches Eyes: Denies change in visual acuity HENT: Denies nasal congestion or sore throat Respiratory: Denies cough or shortness of breath Cardiovascular: Denies chest pain or edema GI: Denies abdominal pain. Nausea, vomiting, diarrhea : Denies dysuria Musculoskeletal: Denies back pain or joint pain Integument: Denies rash Neurologic: Headache. Denies focal weakness or sensory changes Endocrine: Denies polyuria or polydipsia Lymphatic: Denies swollen glands Psychiatric: Denies depression or anxiety Allergies: Allergies: Allergies Coded Allergies Type Severity Reaction Last Updated Verified lisdexamfetamine Allergy Mild 11/17/17 Yes Physical Exam: PE: Constitutional: Well developed, well nourished, obese, no acute distress, non- toxic appearance. [] HENT: Normocephalic, atraumatic, bilateral external ears normal, oropharynx moist, no oral exudates, nose normal. [] Eyes: PERRLA, EOMI, conjunctiva normal, no discharge. [] Neck: Normal range of motion, no tenderness, supple, no stridor. [] Cardiovascular: Heart rate regular rhythm, no murmur [] Lungs & Thorax: Bilateral breath sounds clear to auscultation [] Abdomen: Bowel sounds normal, soft, no tenderness, no masses, no pulsatile masses. [] Skin: Warm, dry, no erythema, no rash. [] Back: No tenderness, no CVA tenderness. [] Extremities: No tenderness, no cyanosis, no clubbing, ROM intact, no edema. [] Neurologic: Alert and oriented X 3, normal motor function, normal sensory func tion, no focal deficits noted. [] Psychologic: Affect normal, judgement normal, mood normal. [] EKG: EKG: [] Radiology/Procedures: Radiology/Procedures: [] Heart Score: C/O Chest Pain: N/A Risk Factors: Risk Factors: DM, Current or recent (<one month) smoker, HTN, HLP, family history of CAD, obesity. Risk Scores: Score 0 - 3: 2.5% MACE over next 6 weeks - Discharge Home Score 4 - 6: 20.3% MACE over next 6 weeks - Admit for Clinical Observation Score 7 - 10: 72.7% MACE over next 6 weeks - Early Invasive Strategies Course & Med Decision Making: Course & Med Decision Making Pertinent Labs and Imaging studies reviewed. (See chart for details) The patient's labs are unremarkable. She appears to have some kind of viral syndrome. I advised supportive care. She is stable for discharge at this time. I will discharge her with a prescription for Zofran. [] Dragon Disclaimer: Dragon Disclaimer: This electronic medical record was generated, in whole or in part, using a voice recognition dictation system. Departure Departure: Impression: Primary Impression: Viral syndrome Additional Impression: Nausea & vomiting Qualified Codes: R11.2 - Nausea with vomiting, unspecified Disposition: HOME / SELF CARE / HOMELESS Condition: STABLE Referrals: LESLI ROMERO (PCP) Patient Instructions: Nausea and Vomiting, [id number], Viral Syndrome Scripts Ondansetron (ONDANSETRON ODT) 4 Mg Tab.rapdis 1 TAB PO PRN Q6-8HRS PRN for VOMITING, #16 TAB Prov: BRENTON LUNA DO 06/20/20 BRENTON LUNA DO June 20, 2020 13:11
[2020-06-20 13:26] LABS: BASO % 0 % (0-3); EOS # 0.1 x10^3/uL (0.0-0.7); EOS % 1 % (0-3); HEMATOCRIT 38.1 % (36.0-47.0); HEMOGLOBIN 13.1 g/dL (12.0-15.5); LYMPH # 1.5 x10^3/uL (1.0-4.8); LYMPH % 22 % (24-48); MEAN CORPUSCULAR HEMOGLOBIN 27 pg (25-35); MEAN CORPUSCULAR HGB CONC 35 g/dL (31-37); MEAN CORPUSCULAR VOLUME 79 fL (79-100); MONO # 0.7 x10^3/uL (0.0-1.1); MONO % 11 % (0-9); NEUT # 4.5 x10^3uL (1.8-7.7); NEUT % 66 % (31-73); PLATELET COUNT 231 x10^3/uL (140-400); RED BLOOD COUNT 4.84 x10^6/uL (3.50-5.40); RED CELL DISTRIBUTION WIDTH 14.9 % (11.5-14.5); WHITE BLOOD COUNT 6.9 x10^3/uL (4.0-11.0)
[2020-06-20 13:35] LABS: CALCIUM 9.3 mg/dL (8.5-10.1); CREATININE 0.8 mg/dL (0.6-1.0); GFR 88.9; POTASSIUM 3.1 mmol/L (3.5-5.1)
[2020-06-20 13:41] LABS: ALBUMIN 3.8 g/dL (3.4-5.0); ALBUMIN/GLOBULIN RATIO 0.8 (1.0-1.7); TOTAL BILIRUBIN 0.6 mg/dL (0.2-1.0); TOTAL PROTEIN 8.3 g/dL (6.4-8.2)
[2020-06-20 15:58] LABS: BACTERIA,URINE FEW /HPF (0-FEW); BILIRUBIN,URINE NEG (NEG); CLARITY,URINE CLEAR; COLOR,URINE YELLOW; GLUCOSE,URINE NEG (NEG); NITRITE,URINE NEG (NEG); RBC,URINE OCC /HPF (0-2); SQUAMOUS EPITHELIAL CELL,UR MANY /LPF; UROBILINOGEN,URINE 0.2 mg/dL (0.2 mg/dL)
[2020-06-20] MEDS ORDERED: ONDA4TAB12 PO (16:09)
[2020-06-20 16:22] VITALS: BP 122/70
== END 2020-06-20 16:22 | disposition home or self-care (01) ==
LOC: ER 12:52
DX: B34.9 Viral infection, unspecified (principal); R11.2 Nausea with vomiting, unspecified; F12.10 Cannabis abuse, uncomplicated; Z87.440 Personal history of urinary (tract) infections
CPT/HCPCS: 36415; 80053; 81001; 85025; 87086; 96361; 96374; 96375; 99284; J1200; J1885; J2765; J7030